=== PATIENT | male | born 1950 | race Caucasian/White ===

== ENCOUNTER 2019-04-19 08:57 | Inpatient (IN) ==
--- NOTE | 2019-04-19 09:24 | PROVIDER DOCUMENTATION ---
HPI-General Adult - General Chief Complaint: Fall Stated Complaint: NECK ARM PAIN Time Seen by Provider: 04/19/19 09:12 Source: patient, family Allergies/Adverse Reactions: Patient Allergies Allergy/AdvReac Type Severity Reaction Status Date / Time gabapentin [From Neurontin] Allergy Intermediate VOMITING Verified 04/19/19 09:26 lisinopril Allergy Intermediate DIZZINESS Verified 04/19/19 09:26 Home Medications: Home Medication List Medication Instructions Recorded Confirmed Last Taken Type Albuterol Sulfate [Ventolin] 5 mg IH PRN PRN 05/22/12 04/19/19 05/22/12 16:15 History 2 puffs Amlodipine [Norvasc] 10 mg PO DAILY 05/22/12 04/19/19 05/22/12 06:00 History 10mg Ipratropium [place] Neb [Atrovent 0.5 mg INH RTQ6H 05/22/12 04/19/19 05/22/12 12:00 History Neb] Metoprolol [Lopressor] 100 mg PO DAILY 05/22/12 04/19/19 05/21/12 20:00 History 100mg Aspirin [Aspir-Low] 81 mg PO DAILY 04/19/19 04/19/19 Unknown History Clonazepam 1 tab PO DAILY 04/19/19 04/19/19 Unknown History Furosemide 1 tab PO DAILY 04/19/19 04/19/19 Unknown History Hydrocodone/Acetaminophen [[place] 1 tab PO PRN PRN 04/19/19 04/19/19 2 Weeks Ago History 7.5-325 Tablet] ~04/05/19 Losartan Potassium [Cozaar] 100 mg PO DAILY 04/19/19 04/19/19 Unknown History - History of Present Illness -Gen Adult Nature of Presenting Problems: patient is a 68 yowm presenting to the ED today for recent falls, neck pain, and right sided weakness. he reports the neck pain started one week ago. the right arm pain started one week ago, but the arm started swelling today. family reports he has fallen twice in the last week- once last Saturday and once last Saturday (04/12/19 and 04/10/19). patient reports last Saturday he remembers "getting dizzy and then getting up". he does not remember the fall. today he presents with neck pain and right arm weakness and swelling. he reports he woke up with weakness in the right arm and swelling. family reports his blood pressure has been low the last week so they told him to stop taking his blood pressure medications, including his lasix one week ago. weakness noted to right upper extremity. equal strength to lower extremities. patient in no distress on assessment. patient denies dizziness today. he denies numbness, tingling, sensory loss. Location of Pain/Injury: reports: neck Pain Radiation: reports: no radiation Quality of Pain: reports: aching Severity: reports: mild Onset/Duration: reports: last week Timing: reports: still present Context/Activities at Onset: reports: light activity Associated Symptoms: reports: back/neck pain, sensory/motor loss, syncope. denies: chest pain, diaphoresis, diarrhea, dizziness, fever/chills, nausea, seizure, shortness of breath Similar Symptoms Previously?: No Recently seen or treated by another doctor?: No Review of Systems - Adult - REVIEW OF SYSTEMS - ADULT Constitutional: reports: no symptoms reported. denies: chills, fever Eyes: reports: no symptoms reported Ears, Nose, Mouth & Throat: reports: no symptoms reported Cardiovascular: reports: edema (right arm), syncope. denies: chest pain, palpitations Respiratory: denies: cough, shortness of breath, wheezing Gastrointestinal: denies: abdominal pain, diarrhea, nausea, vomiting Genitourinary: reports: no symptoms reported Musculoskeletal: reports: no symptoms reported Integumentary: reports: no symptoms reported Neurological: reports: dizziness/vertigo, syncope. denies: headache/migraines, numbness, seizure Psychiatric: reports: no symptoms reported Endocrine: reports: no symptoms reported Hematologic/Lymphatic: reports: no symptoms reported Allergic/Immunologic: reports: no symptoms reported All Other Systems: Reviewed and Negative Past History - Adult - PAST MEDICAL HISTORY-ADULT Review of Records: reports: Old Records Reviewed, Nursing Assessment Review, Medications Reviewed - SOCIAL HISTORY Smoking: cigarettes Provider spent 3-5 mins advising pt. on dangers of tobacco.: Discussed manners to quit use, and f/u contacts for add'l counseling. Physical Exam-General - PHYSICAL EXAM-ADULT Initial Vital Signs Reviewed: Yes - CONSTITUTIONAL General Appearance: appears well, alert, no apparent distress - EYES Eyes: PERRL/EOMI - HEAD, EARS, NOSE, MOUTH & THROAT HENMT: normocephalic/atraumatic, moist mucous membranes, normal ENT inspection - NECK Neck: full range of motion, supple, normal inspection, C-spine tenderness - RESPIRATORY Respiratory: chest non-tender, no pleuratic chest pain, no respiratory distress, no accessory muscle use, decreased breath sounds, rhonchi - CARDIOVASCULAR Cardiovascular: regular rate, rhythm, no edema, no JVD - GASTROINTESTINAL (ABDOMEN) Abdominal Exam: normal bowel sounds, non tender, soft - LYMPHATIC Lymphatic: no adenopathy - MUSCULOSKELETAL Back Exam: normal inspection, no CVA tenderness, no vertebral tenderness Extremity: normal range of motion, non-tender, normal gait - SKIN Integumentary: normal color, normal turgor, warm/dry - NEUROLOGIC Neurologic: grossly normal, no motor/sensory deficits - PSYCHIATRIC Psych/Mental Status: normal mood/affect, normal thought content, normal thought process, oriented x 3 Progress - PLAN OF CARE/RESULTS Progress/Plan/Lab Results: Vital Signs - 8 hr 04/19/19 09:07 Temperature 97.9 F Pulse Rate 79 Respiratory Rate 18 Blood Pressure 149/90 O2 Sat by Pulse Oximetry 95 Orders Category Date Time Status Orthostatic Vital Signs NOW Care 04/19/19 09:20 Active CHEST-2 VIEWS [RAD] Stat Exams 04/19/19 09:[address] HEAD W/O CONTRAST [CT] Stat Exams 04/19/19 09:20 Ordered CBC WITH ELECTRONIC DIFF [HEME] Stat Lab 04/19/19 09:20 Uncollected CK PROFILE [SP CHEM] Stat Lab 04/19/19 09:20 Uncollected COMPREHENSIVE METABOLIC PANEL [CHEM] Stat Lab 04/19/19 09:20 Uncollected PRO B-NATRIURETIC PEPTIDE Stat Lab 04/19/19 09:20 Uncollected TROPONIN T Stat Lab 04/19/19 09:20 Uncollected URINALYSIS W/POSS RFLX CULT [URINALYSIS] Stat Lab 04/19/19 09:20 Uncollected EKG [EKG] Stat Ther 04/19/19 09:20 Ordered discussed plan of care with patient and family- they understand and agree with plan of care and deny any questions at this time. hospitalist in to see patient, and placed inpatient orders- patient left AMA due to wanting a cigarette, after being warned multiple times about his serious condition. he was warned about worsening condition and possible . patient signed AMA papers. Result Diagrams: 04/19/19 10:00 04/19/19 10:00 - EKG 1 Time of EKG reading by physician:: 09:38 EKG Read and Signed by:: Kodak Lockhart EKG Interpretation (*Must complete 3 of following elements*): Normal Rate: 73 Rhythm: sinus [place]: normal QRS: PVC's [place] Interval: normal ST Wave: normal - XRAY 1 XRAY Study: Chest Impression: See EMR Report ( Signed EXAM: CHEST-2 VIEWS 04/19/2019 HISTORY: syncope TECHNIQUE: PA and lateral chest COMMENT: There are no previous radiographs studies available for comparison. There is ill-defined opacity laterally in the right lung which may be due to fibrosis. This is also present over the hemidiaphragm and to some extent in the left base there is platelike opacity. The heart size is within normal limits. The previous CT of the abdomen dated 12/17/2017 did not demonstrate any of the basilar opacities demonstrated on today's study. IMPRESSION: The possibility of right lower, middle and upper lobe pneumonia and atelectasis versus pneumonia in the left lower lobe cannot be excluded. Comparison with previous radiographs is recommended. Electronically signed by Tunde Bejarano 04/19/2019 10:50 AM 04/19/19 1050 Interpreting Physician: Tunde Bejarano MD Dictated Date/Time: 04/19/19 1049 cc: Miesha Fernandez; Porfirio Carr MD) - CT/MRI 1 CT Study: Cervical Spine, Head Impression: See EMR Report ( Signed EXAM: CT HEAD/C-SPINE W/O CONTRAST 04/19/2019 HISTORY: right sided weakness, fall, syncope TECHNIQUE: This exam was performed using automated exposure control, adjustment of mA or kV according to patient size, and/or use of iterative reconstruction technique. COMMENT: There is no evidence of mass effect, bleed, or abnormal extra-axial fluid collection. The visualized paranasal sinuses are clear. The calvarium is intact. Cervical spine: There is severe posterior osteophyte formation at the C4-5 and C5-6 levels with presumably spinal stenosis. There is bilateral foraminal stenosis at C4-5 and C5-6. There is ankylosis of C6 and C7. There is uncovertebral arthropathy with encroachment on the intervertebral foramina bilaterally at C7-T1. There is no evidence of prevertebral soft tissue swelling. There is no evidence of acute disease in the visualized portion of the chest. IMPRESSION: No evidence of acute intracranial disease. Degenerative changes in the cervical spine as described. Electronically signed by Tunde Bejarano 04/09 10:48 AM 04/19/19 1048 Interpreting Physician: Tunde Bejarano MD Dictated Date/Time: 04/19/19 1045 cc: Miesha Fernandez; Porfirio Carr MD) - CONSULTS/PCP/HOSPITALIST Notification #1 *Consult/PCP/Hospitalist*: NASRIN Madrigal Time Discussed: 11:30 Consult Disposition: Will see in ED, Admit Departure - Departure Date of Disposition Decision: 04/19/19 Time of Disposition Decision: 11:30 DIAGNOSIS: Syncope Qualifiers: Syncope type: unspecified Qualified Code(s): R55 - Syncope and collapse Pneumonia Qualifiers: Pneumonia type: due to unspecified organism Laterality: bilateral Lung location: unspecified part of lung Qualified Code(s): J18.9 - Pneumonia, unspecified organism Disposition: AGAINST MEDICAL ADVICE 07 Certified Medical Emergency: Emergent Condition: Fair Referrals and Follow-Ups: Porfirio Carr MD [Primary Care Provider] - - Critical Care Note This patient required my direct & personal management of CC.: No Attestation - Physician/ DAYDAY Attestation Patient care was provided by Advanced Practice Provider:: Yes Advanced Practice Provider:: Miesha Fernandez Advanced Practice Provider documentation review:: The Mid-level provider documentation, treatment plan and medical decision making was reviewed by the physician who agrees with all treatment and medical decision making by the P. The physician spent face to face time with patient:: No Advanced Practice Provider documentation review:: Supervising physician onsite and consulted in the evaluation and care of this patient. The physician did not have a face to face encounter with the patient.
[2019-04-19 10:25] LABS: URINE SOURCE CLEAN CATCH
[2019-04-19 10:32] LABS: BASO# 0.03 X1000 (0.0-0.2); BASO% 0.5 % (0.0-0.8); EOS# 0.29 X1000 (0.0-0.7); EOS% 4.5 % (0.0-10.0); HEMATOCRIT 36.3 % (42.0-52.0); HEMOGLOBIN 12.3 g/dL (14.0-18.0); LYMPH# 1.65 X1000 (1.2-3.4); LYMPH% 25.4 % (20.5-51.1); MCH 29.8 PG (27-31); MCHC 33.9 g/dL (33-37); MCV 87.9 FL (81-99); MONO# 0.66 X1000 (0.11-0.59); MONO% 10.2 % (1.7-9.3); MPV 10.1 FL (7.4-10.4); NEUT# 3.87 X1000 (1.4-6.5); NEUT% 59.4 % (42.2-75.2); PLT 311 X1000 (130-400); RBC 4.13 XMIL (4.7-6.1); RDW 12.3 % (11.5-14.5)
[2019-04-19 10:34] LABS: BILIRUBIN URINE NEGATIVE (NEGATIVE); BLOOD URINE MODERATE (NEGATIVE); COLOR YELLOW; GLUCOSE URINE NEGATIVE (NEGATIVE); KETONE URINE NEGATIVE (NEGATIVE); LEUKOCYTES URINE NEGATIVE (NEGATIVE); NITRITE URINE NEGATIVE (NEGATIVE); PH URINE 5.5; PROTEIN URINE TRACE mg/dL (NEGATIVE); TURBIDITY URINE CLEAR (CLEAR); UROBILINOGEN URINE NORMAL (NORMAL)
[2019-04-19 10:36] LABS: UR EPITHELIAL CELLS <10 /HPF (<10); URINE BACTERIA NEGATIVE /HPF; URINE RBC 20-40 /HPF (<10); URINE WBC <10 /HPF (<10)
--- NOTE | 2019-04-19 10:40 | EKG Report ---
Test Performed on : 04/19/2019 09:32:31 AM Test Reason : syncope Blood Pressure : / mmHG Vent. Rate : 073 BPM Atrial Rate : 073 BPM P-R Int : 142 ms QRS Dur : 096 ms QT Int : 378 ms P-R-T Axes : 051 016 040 degrees QTc Int : 416 ms Sinus rhythm. with occasional premature ventricular complexes. Otherwise normal ECG When compared with ECG of 21-SEP-2009 10:48, aberrant conduction. is no longer present Unconfirmed Result
--- NOTE | 2019-04-19 10:51 | Diag Imaging Result Doc PS360 ---
EXAM: CT HEAD/C-SPINE W/O CONTRAST 04/19/2019 HISTORY: right sided weakness, fall, syncope TECHNIQUE: This exam was performed using automated exposure control, adjustment of mA or kV according to patient size, and/or use of iterative reconstruction technique. COMMENT: There is no evidence of mass effect, bleed, or abnormal extra-axial fluid collection. The visualized paranasal sinuses are clear. The calvarium is intact. Cervical spine: There is severe posterior osteophyte formation at the C4-5 and C5-6 levels with presumably spinal stenosis. There is bilateral foraminal stenosis at C4-5 and C5-6. There is ankylosis of C6 and C7. There is uncovertebral arthropathy with encroachment on the intervertebral foramina bilaterally at C7-T1. There is no evidence of prevertebral soft tissue swelling. There is no evidence of acute disease in the visualized portion of the chest. IMPRESSION: No evidence of acute intracranial disease. Degenerative changes in the cervical spine as described. Electronically signed by Tunde Bejarano 04/19/2019 10:48 AM
--- NOTE | 2019-04-19 10:53 | Diag Imaging Result Doc PS360 ---
EXAM: CHEST-2 VIEWS 04/19/2019 HISTORY: syncope TECHNIQUE: PA and lateral chest COMMENT: There are no previous radiographs studies available for comparison. There is ill-defined opacity laterally in the right lung which may be due to fibrosis. This is also present over the hemidiaphragm and to some extent in the left base there is platelike opacity. The heart size is within normal limits. The previous CT of the abdomen dated 12/17/2017 did not demonstrate any of the basilar opacities demonstrated on today's study. IMPRESSION: The possibility of right lower, middle and upper lobe pneumonia and atelectasis versus pneumonia in the left lower lobe cannot be excluded. Comparison with previous radiographs is recommended. Electronically signed by Tunde Bejarano 04/19/2019 10:50 AM
[2019-04-19 10:54] LABS: AGAP 11; ALB/GLOB RATIO 0.9; ALBUMIN 3.1 g/dL (3.5-5.0); ALKALINE PHOSPHATASE 78 U/L (32-122); BUN 12 mg/dL (8-22); CALCIUM 8.8 mg/dL (8.8-10.2); CHLORIDE 106 mmol/L (98-107); CK PROFILE 35 U/L (24-204); COSMO 280; CREATININE 1.1 mg/dL (0.7-1.2); ESTIMATED GFR > 60; GLUCOSE 87 mg/dL (70-104); GOT 16 U/L (10-34); GPT 12 U/L (10-44); POTASSIUM 4.3 mmol/L (3.5-5.1); SODIUM 141 mmol/L (136-145); TCO2 24 mmol/L (25-35); TOTAL BILIRUBIN 0.38 mg/dL (0.20-1.00); TOTAL PROTEIN 6.5 g/dL (6.3-8.3)
[2019-04-19] MEDS ORDERED: ROCEPHIN 1 GM in NS 50 ML IV ONE (11:31)
[2019-04-19] MEDS ORDERED: ZITHROMAX PO ONE (11:31)
[2019-04-19] MEDS ORDERED: DUONEB (A & A) INH PRN (12:23)
--- NOTE | 2019-04-19 12:26 | Diag Imaging Result Doc PS360 ---
EXAM: CT ANGIOGRAM PULMONARY ARTERIES 04/19/2019 HISTORY: d-dimer TECHNIQUE: This exam was performed using automated exposure control, adjustment of mA or kV according to patient size, and/or use of iterative reconstruction technique. COMMENT: 3-D MIPS were performed. There are no filling defects in the pulmonary arteries. The aorta is normal in caliber and there is no evidence of dissection. There are coronary calcifications. There is some reflux of contrast into the inferior vena cava. There is a cyst in the anterior right hepatic lobe measuring 2.6 cm in diameter. There is right hilar adenopathy. There is some nonspecific aorticopulmonary window paratracheal and subcarinal nodes. There is ill-defined opacity in the right lower and middle lobe. There are patchy opacities peripherally in the right upper lobe. There are minimal pleural-based opacities in the left lower lobe. IMPRESSION: Bronchopneumonia particularly in the right lung. Right hilar adenopathy which may be reactive. No evidence of pulmonary emboli. Electronically signed by Tunde Bejarano 04/19/2019 12:24 PM
--- NOTE | 2019-04-19 12:27 | Diag Imaging Result Doc PS360 ---
EXAM: WRIST COMPLETE RIGHT 04/19/2019 HISTORY: fall TECHNIQUE: Right wrist three views COMMENT: There is no evidence of fracture or dislocation. No other definite bony abnormalities are present. IMPRESSION: No acute bony abnormality. Electronically signed by Tunde Bejarano 04/19/2019 12:24 PM
--- NOTE | 2019-04-19 12:27 | Diag Imaging Result Doc PS360 ---
EXAM: SHOULDER-RIGHT 04/19/2019 HISTORY: fall TECHNIQUE: Right shoulder three views COMMENT: There is no evidence of fracture or dislocation. There is no actual external rotation view however. IMPRESSION: No definite bony abnormality. Electronically signed by Tunde Bejarano 04/19/2019 12:25 PM
[2019-04-19] MEDS ORDERED: ROCEPHIN 1 GM in NS 50 ML IV SCH (12:30)
[2019-04-19 13:17] VITALS: BP 165/93
[2019-04-19] MEDS ORDERED: DUONEB (A & A) INH SCH (15:30)
--- NOTE | 2019-04-20 05:51 | HISTORY AND PHYSICAL ---
DATE: 04/19/2019 Mr. Carreon presented to the emergency room complaining of frequent falls, right-sided weakness as well as neck pain and right arm pain. He was evaluated by provider in the emergency room who CT of the head and cervical spine, right shoulder, right wrist x-rays were obtained as well as a chest x-ray. He was found to have an elevated D-dimer. Pulmonary arteriogram was performed which revealed bronchopneumonia in the right lung. No evidence of pulmonary emboli. Hospitalists were consulted to admit the patient. I went down to the emergency room to interview the patient. As I walked into the room I introduced myself and Mr. aCrreon said "I don't have pneumonia is just my right arm hurts and I want to go outside and smoke." I informed Mr. Carreon that we were nonsmoking facility that I could not give him permission to go out and smoke and that he certainly did not need to be smoking with pneumonia. With that Mr. Carreon looked to his family member and stated "if I cannot smoke I am going to leave let's just go." He then turned to the nurse told her to take his IV out that he was leaving. I attempted to discuss with Mr. Carreon that he did have pneumonia and would need care to which I was told "you don't need to talk to me anymore I can't smoke so I am going home." Therefore I left the emergency room and Mr. Carreon left AMA approximately 1:17. Dictated by NASRIN Castillo for Andrés Walton MD cc: NASRIN Castillo MD
[2019-04-20] MEDS ORDERED: ZITHROMAX PO SCH (09:00)
== END 2019-04-19 13:15 | disposition left against medical advice (07) | DRG 195 ==
LOC: ED 08:57 → EDIPHOLD 12:26 → ED 13:15 → EDIPHOLD 13:17